=== PATIENT | male | born 1960 | race Caucasian/White ===

== ENCOUNTER 2020-03-27 20:10 | Emergency (ER) | payer OTHER, SELFPAY ==
[~2020-03-27] VITALS: Ht 177.8 cm; Wt 108.9 kg
[2020-03-27 20:51] VITALS: BP_SYST 100
[2020-03-27 21:32] VITALS: BP_SYST 102
== END 2020-03-27 21:32 | disposition home or self-care (01) ==
LOC: SED 20:10
DX: N40.0 Benign prostatic hyperplasia without lower urinary tract symptoms (principal)
CPT/HCPCS: 81002; 99284

== ENCOUNTER 2020-04-02 13:40 | Emergency (ER) | payer OTHER, SELFPAY ==
[~2020-04-02] VITALS: Ht 177.8 cm; Wt 108.9 kg
[2020-04-02 14:01] VITALS: BP_SYST 143
--- NOTE | 2020-04-02 14:02 | NUR ---
Patient triaged and placed in waiting room. VSS and patient appears in no acute distress at this time. Accompanied by self, awaiting available bed, and MD notified of need for MSE.
--- NOTE | 2020-04-02 14:04 | NUR ---
Pt brought by self, A&Ox4, pt presents to ER with leaking in the urinary catheter, catheter was placed 1 week ago for urinary retention, pt states he is also covid +, skin pink and warm, cap refill <3, VSS, respirations even and unlabored.
--- NOTE | 2020-04-02 15:20 | NUR ---
Dr Tee evaluating patient in the tent
[2020-04-02 16:13] VITALS: BP_SYST 143
--- NOTE | 2020-04-02 16:13 | NUR ---
Patient given written and verbal discharge instructions and verbalizes understanding. ER MD discussed with patient the results and treatment provided. Patient in stable condition. ID arm band removed. Rx of Cefdinir and Flomax given. Patient educated on pain management and to follow up with PMD. Pain Scale 3/10 tolerable for pt . Opportunity for questions provided and answered. Medication side effect fact sheet provided.
== END 2020-04-02 16:13 | disposition home or self-care (01) ==
LOC: SED 13:40
DX: N39.0 Urinary tract infection, site not specified (principal)
CPT/HCPCS: 87086; 99283